=== PATIENT | female | born 1935 | race Caucasian/White ===

== ENCOUNTER 2016-12-19 07:26 | Day surgery (SDC) | payer MEDICARE, OTHER ==
--- NOTE | ~2016-12-19 | EGD ---
EGD REPORT [facility] [address] [address] NAME: LIZA LORENZO : 37 STATUS : REG [facility]#: [id number] AGE: 81 ADM/REG DATE : 12/19/16 MR#: [id number] REPORT SERV DATE: 12/19/16 DICTATED BY: DATE: REPORT STATUS : Draft TRANSCRIBED BY: [employer] DATE: 12/19/16 [facility] Patient Name: Liza Lorenzo Date of : 1935 Attending MD: LEDY REAL MD Procedure Date No Time: 12/19/2016 Procedure: Upper GI endoscopy Indications: Dysphagia, Cirrhosis rule out esophageal varices Referring MD: KELLY MAX Medicines: Monitored Anesthesia Care Complications: No immediate complications. Procedure: Pre-Anesthesia Assessment: - ASA Grade Assessment: III - A patient with severe systemic disease. After obtaining informed consent, the endoscope was passed under direct vision. Throughout the procedure, the patient's blood pressure, pulse, and oxygen saturations were monitored continuously. The GIF [id number] was introduced through the mouth, and advanced to the second part of duodenum. The upper GI endoscopy was accomplished without difficulty. The patient tolerated the procedure well. Findings: A 5 cm hiatus hernia was present. The examined esophagus was moderately tortuous. There is no endoscopic evidence of Sy's esophagus, areas of erosion, ulcerations or varices in the entire esophagus. Evidence of a Sergey fundoplication was found at the gastroesophageal junction. The wrap appeared slipped. This was traversed. Patchy atrophic mucosa was found in the gastric body and in the gastric antrum. Biopsies have been done previously and were not repeated. No other significant abnormalities were identified in a careful examination of the stomach. There is no endoscopic evidence of mucosal abnormalities, ulceration or varices in the entire examined stomach. The examined duodenum was normal. There is no endoscopic evidence of bleeding, mucosal abnormalities or ulceration in the entire examined duodenum. The cardia and gastric fundus were otherwise normal on retroflexion. Impression: - Hiatus hernia. - Tortuous esophagus. - A Sergey fundoplication was found. The wrap appears slipped. EGD REPORT [address] [address] NAME: LIZA LORENZO : 37 STATUS : REG [facility] PAT#: [id number] AGE: 81 ADM/REG DATE : 12/19/16 MR#: [id number] REPORT SERV DATE: 12/19/16 DICTATED BY: DATE: REPORT STATUS : Draft TRANSCRIBED BY: [employer] DATE: 12/19/16 - Gastric mucosal atrophy. - Normal examined duodenum. Recommendation: - Patient has a contact number available for emergencies. The signs and symptoms of potential delayed complications were discussed with the patient. Return to normal activities tomorrow. Written discharge instructions were provided to the patient. - Return to previous diet. - Discharge patient to home. - Continue present medications. Procedure Code(s): --- Professional --- 87939, Esophagogastroduodenoscopy, flexible, transoral; diagnostic, including collection of specimen(s) by brushing or washing, when performed (separate procedure) Diagnosis Code(s): --- Professional --- K44.9, Diaphragmatic hernia without obstruction or gangrene Q39.9, Congenital malformation of esophagus, unspecified Z98.89, Other specified postprocedural states K31.89, Other diseases of stomach and duodenum R13.10, Dysphagia, unspecified K74.60, Unspecified cirrhosis of liver CPT copyright 2013 [employer]. All rights reserved. The codes documented in this report are preliminary and upon lane attendant review may be revised to meet current compliance requirements. LEDY REAL MD 12/19/2016 10:43 AM This report has been signed electronically. Number of Addenda: 0 Note Initiated On: 12/19/2016 10:29 AM Scope Withdrawal Time 0 hours 0 minutes 0 seconds [id number] [address]
[~2016-12-19 07:26] MED LIST: ALLEGRA180 PO; AUG875 PO; BENTYL10 PO; CALTRA600D PO; DCN100 PO; HYDROCHLOROT12.5 MG PO; MCZ125 PO; MULTIPLE VIT PO; NEUR300 PO; PRILOSEC40 MG PO; PROAIR HFA INH; PROVHFA INH; PROZAC PO; SINGULAIR1 PO; SYMBICORT 160/41 INH INH; T3 PO; VENTOLIN HFA INH; VITAMIN D31000 UNIT PO; VITE PO; [UNRECOGNIZED DRUG - REMARK] PO
== END 2016-12-19 23:59 | disposition home or self-care (01) ==
LOC: DMU 07:26
PROVIDERS: Internal Medicine Gastroenterology
PROC: 0DJ08ZZ Inspection of Upper Intestinal Tract, Via Natural or Artificial Opening Endoscopic (ICD-10-PCS; principal; 2016-12-19 09:00)
DX: K44.9 Diaphragmatic hernia without obstruction or gangrene (principal); K31.89 Other diseases of stomach and duodenum; K74.60 Unspecified cirrhosis of liver; F32.9 Major depressive disorder, single episode, unspecified; F41.9 Anxiety disorder, unspecified; Q39.9 Congenital malformation of esophagus, unspecified; Z98.890 Other specified postprocedural states; Z88.8 Allergy status to other drugs, medicaments and biological substances